=== PATIENT | female | born 1965 | race Caucasian/White ===

== ENCOUNTER 2019-08-17 10:39 | Emergency (ER) | payer BC, SELFPAY ==
[2019-08-17 10:55] VITALS: BP 109/64; PULSE 57; RESP 20; TEMP 36.9; O2SAT 100
--- NOTE | 2019-08-17 11:28 | ED.URI ---
HPI - URI/Sore Throat General Chief Complaint: Upper Respiratory Infection Stated Complaint: URI History of Present Illness HPI Narrative: This a 54-year-old female comes in with complaint of sinus congestion and postnasal drainage with a sore throat. Patient is worried about having strep throat due to her grandson was positive for sore throat she has been exposed. Patient denies any fever but says in the morning time her throat is been very sore for the past 2 days Related Data Home Medications Medication Instructions Recorded Confirmed Fish Oil 08/17/19 omeprazole 20 mg PO DAILY 08/17/19 08/17/19 Allergies Allergy/AdvReac Type Severity Reaction Status Date / Time nitrofurantoin Allergy Nausea and Verified 08/17/19 11:19 [From Macrobid] Vomiting ibuprofen [From Motrin] AdvReac Chest Pain Verified 08/17/19 11:20 Review of Systems Review of Systems: Narrative: CONSTITUTIONAL: Denies fever, chills, or sweats. EYES: Denies visual changes, redness, or discharge. ENT: Reports rhinorrhea, congestion, sore throat, or otalgia. CARDIOVASCULAR:Denies chest pain, palpitations, or edema. RESPIRATORY: Denies cough or dyspnea. GASTROINTESTINAL: Denies abdominal pain, nausea, vomiting, or diarrhea. GENITOURINARY: Denies dysuria or hematuria. SKIN:[Denies rash or itching. MUSCULOSKELETAL:Denies back pain, joint pain, or myalgia. NEUROLOGIC: Denies headache, numbness, or weakness. PSYCHIATRIC:Denies anxiety or depression PMFSH Comments At time as signature, I have reviewed and agree with nursing past medical, social, surgical and family history. Please see nursing chart for further information. There is no relevant family history pertinent to the presenting complaint. Exam Narrative: Exam Narrative: GENERAL:Well-appearing, well-nourished, and in no acute distress. HEAD:Normocephalic, atraumatic. EYES: PERRLA and EOMI. ENT: Nares clear, no rhinorrhea or epistaxis. Mucous membranes moist. Postnasal drainage NECK: Supple. CHEST: Clear to auscultation. No respiratory distress. HEART: Regular rate and rhythm. No murmur heard. Normal peripheral pulses. ABDOMEN: Soft, nontender, nondistended, normal active bowel sounds. EXTREMITIES: Normal range of motion. No edema. SKIN: Warm, dry, no rash. NEURO: No focal deficits. Alert and oriented x3. Course Vital Signs Vital signs: Vital Signs Temperature 98.5 F 08/17/19 10:55 Pulse Rate 57 L 08/17/19 10:55 Respiratory Rate 08/17/19 10:55 Blood Pressure 109/64 08/17/19 10:55 Pulse Oximetry 100 08/17/19 10:55 Temperature 98.5 F 08/17/19 10:55 Pulse Rate 57 L 08/17/19 10:55 Respiratory Rate 08/17/19 10:55 Blood Pressure 109/64 08/17/19 10:55 Pulse Oximetry 100 08/17/19 10:55 MDM - URI/Sore Throat Lab Data Labs: Strep Screen Positive Group A Strep *(Reference Range: Negative)* Discharge Plan Discharge Clinical Impression: Strep throat Patient Disposition: Home, Self-Care Condition: Stable Instructions: Antibiotic Form, Strep Throat (ED) Prescriptions: New amoxicillin 500 mg capsule 500 mg PO Q12H 10 Days Qty: 20 RF: 0 No Action omeprazole 20 mg Capsule,Delayed Release(Dr/Ec) 20 mg PO DAILY RF: 0 Fish Oil RF: 0 Follow-up/Referrals: UNKNOWN,DOCTOR [Primary Care Provider] - Stand Alone Forms: Work/School Release IP Time of Disposition: 11:30
== END 2019-08-17 11:41 | disposition home or self-care (01) ==
PROVIDERS: Emergency Provider Nurse Practitioner Family
DX: J02.0 Streptococcal pharyngitis (principal); K21.9 Gastro-esophageal reflux disease without esophagitis
CPT/HCPCS: 87880; 99203; G0463